=== PATIENT | female | born 1990 | race Caucasian/White ===

== ENCOUNTER 2025-05-29 13:19 | Observation (INO) ==
--- NOTE | 2025-05-29 13:28 | Emergency Department Note ---
Impression & Plan Cauda equina compression, DDD (degenerative disc disease), lumbar, Muscle spasm, Acute urinary retention, of unknown anatomic location ED Provider Note NAME: GALA LAUREN AGE: 35 SEX: F : 1990 ARRIVES VIA: Ambulance INFORMANT: Patient, EMS and family ED PROVIDER(S): Román Moon DO CHIEF COMPLAINT: back pain HPI: This is a 35-year-old female with the PMHx of depression/anxiety, obesity and DDD with prior L spine discectomy in [place] presenting to [facility] for further evaluation of . Patient is accompanied by EMS and family who provide additional history. Per EMS, the patient has severe pain and required 50 mg of Ketamine, 6 mg of Morphine and 4 mg of Zofran prior to arrival. They report severe back pain that has acutely worsened today. No trauma. Denies IVDU. No saddle anesthesia. They deny fever or chills. No cough or congestion. Denies chest pain or palpitations. No shortness of breath. They deny abdominal pain, nausea and vomiting. No urinary complaints. No recent changes in bowel movements. She states that the only medication she takes is antidepressant. She is suppose to follow up with pain management. Patient denies recent changes in medications or OTC supplements. Patient offers no other complaints, today. ADDITIONAL HISTORY OBTAINED: Per HPI Chronic Medical/Social Conditions Affecting Care: Per HPI PAST MEDICAL HISTORY: See Below PAST SURGICAL HISTORY: See Below FAMILY HISTORY: See Below SOCIAL HISTORY: See Below HOME MEDICATIONS: See Below ALLERGIES: See Below VITALS: See Below PHYSICAL EXAMINATION: GENERAL: Sitting up in bed, alert, well appearing, well nourished, no distress, non-toxic EYE EXAM: normal conjunctiva. OROPHARYNX: no exudate, no erythema, lips, buccal mucosa, and tongue normal and mucous membranes are moist NECK: supple, no nuchal rigidity, no adenopathy, non-tender LUNGS: Clear to auscultation. Normal chest wall mechanics HEART: no murmurs, regular rate, regular rhythm ABDOMEN: abdomen soft, non-tender, normo-active bowel sounds, no masses, no rebound or guarding. BACK: Back is symmetrical on inspection and there is no deformity, low midline tenderness present. EHL 5/5 strength bilaterally. Sensation intact. Moves LEs without difficulty. Strength is 5/5 globally. Patellar reflexes are 2/4 bilaterally. SKIN: no rashes and no bruising UPPER EXTREMITIES: upper extremities are grossly normal. LOWER EXTREMITIES: No pitting edema. NEURO EXAM: Normal sensorium, GCS 15, no gross weakness of arms, no gross weakness of legs. MEDICAL DECISION MAKING: Differential diagnoses includes but not limited to MSK strain, muscle spasm, DDD, cauda equina, cord compression, radiculopathy, OM In summary, this is a 35 year old female who presented with back pain. Differential as above. Nursing notes and pertinent past medical records reviewed. Vital signs reviewed and the patient is mildly hypertensive but otherwise afebrile and HDS. History and presentation revealed known DDD now with severe pain. Scheduled L spine fusion in [place]. I was able to review prior MRI from the last few months via 's EMR daron. Severe DDD noted on MRI. Physical examination revealed normal strength and sensation of the lower extremities. She is normoreflexic. No red flag symptoms besides severe pain. As a result of my initial evaluation, we will plan for pain control, imaging and basic labs. Patient completed laboratory studies and imaging. Results independently interpreted by me are reassuring. No leukocytosis. No anemia. No electrolyte derangements. No kidney dysfunction. CRP is negative. The patient was managed with numerous modalities for pain without improvement. I reevaluated patient and discussed further with her at the bedside, patient has significant back disease. Had a prior discectomy of the L5-S1 area in 2019. Is scheduled to have further back surgery with fusion. This is in [place]. Her pain has become intractable. She has received significant medications for months. We will trial a dose of droperidol. Patient was neurovascularly intact with 2+ patellar reflexes on my evaluation. We are still pending lab work and evaluation with ultrasound for postvoid residual. Given extensive back surgery and history of significant disease, will obtain an MRI today given her intractable pain. Concern for given positive urine screen, quantitative beta-hCG ordered as well as transvaginal ultrasound. Discussed this with the patient. She states she recently lost to 100 pounds and just started getting her periods. She estimates that she could be 2 to 3 weeks but states this was not a possibility previously. She had IVF for her prior pregnancies. She states that she has 2 disabled children at home. She does have frozen embryos in [place]. Patient does not desire this at this time. Patient states she is not worried about medication interactions with the fetus. Patient states that she would like the medications and understands the risk to the fetus. Patient states she would desire a medical . Quantitative beta-hCG was elevated at >1200. Transvaginal ultrasound did not show an intrauterine . There is a possibility of ectopic . Given that this is <1500 for beta- hCG, I would recommend repeat beta HCG in the next 48 hours. This was discussed with the patient. She would like to follow-up with an PAYMENT SPECIALIST as an outpatient. We are unable to offer medical at this time As discussed with PAYMENT SPECIALIST on-call Dr. Wilhelm. Discussed ectopic and bleeding precautions with the patient. There was delay in obtaining MRI for reasons including possible and discussions/confirmation, pain control and unable to tolerate supine positioning. Given concerns for intractable pain and urinary retention as she has been unable to urinate, spine surgery was paged at 174. I did independently review the patient's MRI that shows significant degenerative disc disease. I reevaluated the patient at 181, she is still having severe pain. She is now reporting saddle anesthesia. States that she is unable to feel her LEs. Remains normo to hyper- reflexic. Sensation is diminished. Poor rectal tone and states she cannot feel my touch. Still moving the LEs without difficulty. Strength appears to be intact, 5/5. Remains to have 350mL of urine in the bladder. Discussed straight catheterization with the patient, but would recommend dewitt catheter placement for the patient given urinary retention. Will trial another dose of opiates and provide steroids. We will also initiate gabapentin. Given declining examination, radiology paged at 1829 for stat read of MRI L spine for our concerns. Will give IVFR to encourage spontaneous void. If she is still unable to void, we will place dewitt catheter. 184: Per nursing staff, the patient is now sleeping following pain control with IV Fentanyl. IVFR ongoing. Plan for spontaneous void trial. 184: Stat MRI reads: Intervertebral disc extrusion at L4-L5 creating impingement of the cauda equina with no free disc fragment. Neurosurgical consultation suggested, mild disc protrusion at L5-S1 with no nerve root impingement, and lordotic straightening compatible with underlying muscle spasm. 184: Spine re-paged. Updated patient on results. Will place dewitt catheter. 190: No response from spine surgery. Given complexity and time sensitive condition, we will discuss transfer. Discussed with family. They recommend closest facility. Patient can go to any facility per CM. Family and patient are agreeable to transfer to [facility] for high level of care and operative intervention. Page sent to [facility]. 1918: Call received from Dr. Myles and discussed the patient. 1924: He states that the surgery can be this evening or tomorrow morning. He will work on timing and coordinating with the OR. Plans to touch base again, shortly. 1929: I updated the patient and her family numbers at the bedside. They are comfortable staying here at the hospital for surgical intervention. Patient still having significant pain. Dewitt catheter in place. Patient will require operative intervention. They are comfortable with this treatment plan. Will dose further with IV Valium as she is having significant back spasms. Patient is intractable in pain at this point. Given pain as well as urinary retention and MRI findings, the patient will require admission. 1955: Patient discussed with [facility] Hospitalist group for admission and accepted. 1958: TT sent to Dr. Myles discussing plan for admission to medicine. 2004: Present at the bedside for discussion with the patient and Dr. Myles. Plan for operative intervention tonight. Consults/Care Managements Discussions: Per MDM ER treatment provided: See above Procedures:none Critical Care: None The chart was completed utilizing [employer] Speech voice recognition software. Grammatical errors, random word insertions, pronoun errors, and incomplete sentences are an occasional consequence of this system due to software limitations, ambient noise, and hardware issues. Any formal questions or concerns about the content, text, or information contained within the body of this dictation should be directly addressed to the physician for clarification. Past Med/Surg History Problem List with uncertain viability of unknown anatomic location (Acute) Acute urinary retention (Acute) Muscle spasm (Acute) DDD (degenerative disc disease), lumbar (Acute) Cauda equina compression (Acute) Social History Smoking Status: Never smoker Do You Dip or Chew Tobacco: No; Hx Alcohol Use: No Hx Substance Use: No Preferred Language: Faroese Communication Ability: Effective Crop Picker Required: No Beliefs That Will Affect Care: None Current Living Situation: Family Feels Safe at Home: Yes Safety Concerns: Feels Safe At This Time Assistive Devices: None Allergies Allergies Allergy/AdvReac Type Severity Reaction Status Date / Time No Known Allergies Allergy Verified 05/29/25 17:31 Home Meds Home Medications Medication Instructions Recorded Confirmed ibuprofen 200 mg tablet 1,000 mg PO DIRECTED PRN Pain 05/29/25 05/29/25 sertraline 100 mg tablet 200 mg PO DAILY 05/29/25 05/29/25 Results & Data (ED) Vital Signs Vital Signs - 24 hr 05/29/25 13:27 05/29/25 13:27 05/29/25 13:50 Temperature Temperature Source Pulse Rate 91 H 79 Pulse Rate [Right Finger] 91 H Pulse Rate from SpO2 Sensor Pulse Rhythm Regular Pulse Rhythm [Right Finger] Regular Pulse Strength Normal Pulse Strength [Right Finger] Normal Respiratory Rate 20 20 Respiratory Effort / Characteristics Non-Labored Non-Labored Respiratory Depth Normal Normal Respiratory Pattern Regular Regular Blood Pressure 140/70 Blood Pressure [Right Arm] 140/70 Blood Pressure Mean 93 Blood Pressure Mean [Right Arm] 93 Blood Pressure Position Lying Blood Pressure Position [Right Arm] Lying Pulse Oximetry 97 97 Oxygen Delivery Method Room Air Room Air Sepsis Recent Fever Within 48 Hours No Sepsis New/Unexplained Change in Mental Status N/A Sepsis Action Taken by Nursing No Action Required 05/29/25 15:00 05/29/25 16:42 05/29/25 18:28 Temperature Temperature Source Pulse Rate Pulse Rate [Right Finger] 79 74 87 Pulse Rate from SpO2 Sensor Pulse Rhythm Pulse Rhythm [Right Finger] Pulse Strength Pulse Strength [Right Finger] Respiratory Rate 22 20 18 Respiratory Effort / Characteristics Respiratory Depth Respiratory Pattern Blood Pressure Blood Pressure [Right Arm] 94/56 L 144/62 H 116/57 L Blood Pressure Mean Blood Pressure Mean [Right Arm] 68 89 76 Blood Pressure Position Blood Pressure Position [Right Arm] Pulse Oximetry 95 97 95 Oxygen Delivery Method Room Air Room Air Room Air Sepsis Recent Fever Within 48 Hours Sepsis New/Unexplained Change in Mental Status Sepsis Action Taken by Nursing 05/29/25 19:00 05/29/25 19:45 05/29/25 20:02 Temperature 36.8 C Temperature Source Oral Pulse Rate 78 Pulse Rate [Right Finger] 90 Pulse Rate from SpO2 Sensor 100 H Pulse Rhythm Pulse Rhythm [Right Finger] Pulse Strength Pulse Strength [Right Finger] Respiratory Rate 20 14 Respiratory Effort / Characteristics Non-Labored Respiratory Depth Normal Respiratory Pattern Regular Blood Pressure 120/59 L Blood Pressure [Right Arm] 98/55 L Blood Pressure Mean 68 Blood Pressure Mean [Right Arm] 69 Blood Pressure Position Blood Pressure Position [Right Arm] Lying Pulse Oximetry 98 99 Oxygen Delivery Method Sepsis Recent Fever Within 48 Hours Sepsis New/Unexplained Change in Mental Status Sepsis Action Taken by Nursing 05/30/25 00:21 Temperature 36.7 C Temperature Source Oral Pulse Rate Pulse Rate [Right Finger] 125 H Pulse Rate from SpO2 Sensor Pulse Rhythm Pulse Rhythm [Right Finger] Regular Pulse Strength Pulse Strength [Right Finger] Normal Respiratory Rate 20 Respiratory Effort / Characteristics Non-Labored Spontaneous Respiratory Depth Normal Respiratory Pattern Blood Pressure Blood Pressure [Right Arm] 135/74 Blood Pressure Mean Blood Pressure Mean [Right Arm] 94 Blood Pressure Position Blood Pressure Position [Right Arm] Pulse Oximetry 98 Oxygen Delivery Method Room Air Sepsis Recent Fever Within 48 Hours Sepsis New/Unexplained Change in Mental Status Sepsis Action Taken by Nursing Laboratory Data 05/30/25 05:24 05/30/25 05:24 Lab Results 05/29/25 05/29/25 05/29/25 Range/Units 13:32 19:16 20:18 WBC 8.02 (4.8-10.8) K/ul RBC 4.89 (4.20-5.40) M/uL Hgb 14.3 (12.0-16.0) g/dl Hct 41.9 (37.0-47.0) % MCV 85.7 (80.0-100.0) fL MCH 29.2 (25.0-34.0) pg MCHC 34.1 (32.0-36.0) g/dL RDW Std Deviation 41.0 (36.4-46.3) fL RDW Coeff of Simona 13.2 (11.5-14.5) % Plt Count 212 (130-400) K/uL MPV 10.9 (9.4-12.4) fL Immature Gran % (Auto) 0.2 % Neut % (Auto) 71.8 % Lymph % (Auto) 21.2 % Guthrie % (Auto) 6.1 % Eos % (Auto) 0.2 % Baso % (Auto) 0.5 % Neut # (Auto) 5.75 (1.40-6.50) K/uL Lymph # (Auto) 1.70 (1.20-3.40) K/uL Guthrie # (Auto) 0.49 (0.11-0.59) K/uL Eos # (Auto) 0.02 (0.00-0.50) K/uL Baso # (Auto) 0.04 (0.00-0.20) K/uL Immature Gran # (Auto) 0.02 (0.01-0.20) K/uL Sodium 143 (136-145) mmol/L Potassium 3.7 (3.5-5.1) mmol/L Chloride 112 H (98-107) mmol/L Carbon Dioxide 22 (21-32) mmol/L Anion Gap 9 (3-11) BUN 8 (6-23) mg/dl Creatinine 0.65 (0.6-1.2) mg/dl Est Cr Clr Drug Dosing 154.7 ml/min eGFR 118.41 BUN/Creatinine Ratio 12.3 (10-20) Glucose 117 H (70-99(Fasting)) mg/dl Lactate 1.5 (0.4-2.0) mmol/L Calcium 8.8 (8.6-10.3) mg/dl C-Reactive Protein < 0.50 (0-0.5) mg/dl HCG, Qual Positive (Negative) HCG, Quant 1270 mIU/ml Urine Color Yellow Urine Appearance Clear (Clear) Urine pH 5.5 (4.5-7.5) Ur Specific [place] 1.022 (1.000-1.030) Urine Protein Negative (Negative) Urine Glucose (UA) 2+ H (Negative) Urine Ketones 1+ H (Negative) Urine Blood Negative (Negative) Urine Nitrite Negative (Negative) Urine Bilirubin Negative (Negative) Urine Urobilinogen Negative (Negative) Ur Leukocyte Esterase Negative (Negative) Urine Comment Blood Type A Positive Antibody Screen NEGATIVE Administered Medications Gabapentin (Gabapentin 100 Mg Cap) 100 mg PO QAM [facility] Stop: 06/28/25 18:29 Last Admin: 05/29/25 18:30 Dose: 100 mg Documented By: PATRICIA Cefazolin Sodium (Ancef 2000mg) 2,000 mg in 15 mls @ 3.75 mls/min IV Q8H IRINA; Protocol Stop: 05/30/25 14:03 Last Admin: 05/30/25 05:16 Dose: 3.75 mls/min Documented By: DLR Miscellaneous (Remove Lidoderm Patch) 1 each N/A DAILY@2100 [facility] Stop: 06/28/25 20:59 Last Admin: 05/30/25 02:14 Dose: Not Given Documented By: DLR Discontinued Medications Bupivacaine HCl (Bupivacaine 0.5 % 5 Mg/1 Ml Mpf 30ml Vial) Confirm Administered Dose 30 ml .ROUTE .STK-MED ONE Stop: 05/29/25 20:40 Last Admin: 05/29/25 23:52 Dose: 10 ml Documented By: [id number] Dexamethasone (Dexamethasone Sod Inj 4 Mg/Ml Vial) 10 mg IV NOW STA Stop: 05/29/25 18:19 Last Admin: 05/29/25 18:24 Dose: 10 mg Documented By: PATRICIA Diazepam (Diazepam 5 Mg/Ml 10ml Vial) 5 mg IV NOW STA Stop: 05/29/25 13:29 Last Admin: 05/29/25 13:45 Dose: 5 mg Documented By: MILAN Diazepam (Diazepam 5 Mg/Ml 10ml Vial) 5 mg IV NOW STA Stop: 05/29/25 14:48 Last Admin: 05/29/25 16:15 Dose: Not Given Documented By: PATRICIA Diazepam (Diazepam 5 Mg/Ml 10ml Vial) 10 mg IV NOW STA Stop: 05/29/25 19:31 Last Admin: 05/29/25 19:52 Dose: 50 mg Documented By: JUAN Diphenhydramine HCl (Diphenhydramine 50 Mg/Ml Vial) 50 mg IV NOW STA Stop: 05/29/25 14:38 Last Admin: 05/29/25 14:39 Dose: 50 mg Documented By: MILAN Diphenhydramine HCl (Diphenhydramine 50 Mg/Ml Vial) Confirm Administered Dose 50 mg .ROUTE .STK-MED ONE Stop: 05/29/25 14:39 Last Admin: 05/29/25 14:53 Dose: Not Given Documented By: MILAN Droperidol (Droperidol 5 Mg/2 Ml Vial) 1.25 mg IV ONE STA Stop: 05/29/25 14:23 Last Admin: 05/29/25 14:26 Dose: 1.25 mg Documented By: MILAN Fentanyl Citrate (Fentanyl Citrate Pf 100 Mcg/2 Ml Vial) 100 mcg IV NOW STA Stop: 05/29/25 18:19 Last Admin: 05/29/25 18:25 Dose: 100 mcg Documented By: PATRICIA Gelatin (Gelatin Sponge 12-7mm) Confirm Administered Dose 2 each .ROUTE .STK-MED ONE Stop: 05/29/25 20:42 Last Admin: 05/29/25 23:47 Dose: Not Given Documented By: SHELLIE Sodium Chloride (Nss) 1,000 mls @ 999 mls/hr IV .Q1H1M IRINA Stop: 05/29/25 19:27 Last Infusion: 05/30/25 02:17 Dose: Infused Documented By: Admin: 05/29/25 18:38 Dose: 999 mls/hr Documented By: PATRICIA Lactated Ringer's (Lr) 1,000 mls @ 100 mls/hr IV .Q10H ONE Stop: 05/30/25 06:03 Last Admin: 05/30/25 02:14 Dose: Not Given Documented By: YULISSA Acetaminophen (Ofirmev) 1,000 mg in 100 mls @ 400 mls/hr IV NOW STA Stop: 05/29/25 20:48 Last Admin: 05/30/25 02:14 Dose: Not Given Documented By: YULISSA Cefazolin Sodium (Ancef 2000mg) 2,000 mg in 15 mls @ 3.75 mls/min IV PREOP ONE; Protocol Stop: 05/29/25 22:13 Last Admin: 05/29/25 21:50 Dose: 3.75 mls/min Documented By: ANDRE Ketorolac Tromethamine (Ketorolac Tromethamine 15 Mg/Ml Vial) 15 mg IV ONE STA Stop: 05/29/25 13:29 Last Admin: 05/29/25 13:45 Dose: 15 mg Documented By: MILAN Lidocaine (Lidocaine 5% 1 Patch) 1 patch TD NOW STA Stop: 05/29/25 13:29 Last Admin: 05/29/25 13:44 Dose: 1 patch Documented By: MILAN Miscellaneous ( Floseal Hemostatic Matrix 5ml) 5 ml TOP ONCE ONE Stop: 05/29/25 21:47 Last Admin: 05/29/25 23:48 Dose: 1 ml Documented By: [id number] Morphine Sulfate (Morphine Sulfate 10 Mg/Ml Carp/Vial) 6 mg IV NOW STA Stop: 05/29/25 16:53 Last Admin: 05/29/25 16:58 Dose: 6 mg Documented By: PATRICIA Thrombin (Thrombin 5000 Units Kit) Confirm Administered Dose 5,000 units .ROUTE .STK-MED ONE Stop: 05/29/25 20:41 Last Admin: 05/29/25 23:48 Dose: Not Given Documented By: SHELLIE Vancomycin HCl (Vancomycin Hcl 1000mg/20ml Vial) Confirm Administered Dose 50 mg .ROUTE .STK-MED ONE Stop: 05/29/25 20:41 Last Admin: 05/29/25 23:47 Dose: 50 mg Documented By: [id number] Imaging Data Radiologist's Impression: Pelvic/Transvag US 05/29/25 15:09 EXAMINATION: Pelvic ultrasound CLINICAL HISTORY: Positive test and ER. Last menstrual period 1 month ago. Positioning challenges were encountered due to patient back injury. PRIORS: None TECHNIQUE: Transabdominal followed by transvaginal pelvic ultrasound was performed with grayscale and color Doppler imaging. PRIORS: None FINDINGS: Transabdominal followed by transvaginal pelvic ultrasound was performed. An intrauterine is not identified. Endometrium measures 2.3 cm. No vascularity in the endometrium or free fluid. The right ovary measures 3.9 x 2.5 x 3.9 cm. A cystic region present in the right ovary without surrounding vascularity, may represent corpus luteal cyst or follicle this measures 1.1 cm. No pole or yolk sac identified. The left ovary measures 4.3 x 2.6 x 1.9 cm. Normal blood flow is present. No ovarian cyst or mass. No free fluid in the pelvis. Normal blood flow in both ovaries. IMPRESSION: 1. No sonographic evidence of an intrauterine on the current examination. 2. Right ovarian round anechoic mass measuring 1.1 cm with no pole or gestational sac, may represent follicle or corpus luteal cyst. An ectopic is thought to be far less likely. Close clinical, laboratory and sonographic follow-up is suggested. ACT 112: Positive. There are findings on this examination that require communication between the performing entity and the patient following Patient Test Result Information Act ([place] ACT 112) guidelines. Electronically signed by Radha Melo 05-29-2025 5:39 PM Discharge Plan Visit Data Chief Complaint: Back Injury/Pain Stated Complaint: BACK PAIN ED Provider: Román Moon Discharge Problem: Cauda equina compression, DDD (degenerative disc disease), lumbar, Muscle spasm, Acute urinary retention, of unknown anatomic location Patient Disposition: Admitted As Inpatient Condition: Serious Discharge Instructions Interventions: ED Discharge Assessment Last Done: 05/29/25 20:33
[2025-05-29] MEDS: LIDOCAINE 5% 1 PATCH TD STA (13:44)
[2025-05-29] MEDS: KETOROLAC TROMETHAMINE 15 MG/ML VIAL IV STA (13:45)
[2025-05-29] MEDS: diazePAM 5 MG/ML 10ML VIAL IV STA ×3 (13:45→19:52)
[2025-05-29 13:54] LABS: Hematocrit (blood only) 41.9 % (37.0-47.0); Hemoglobin 14.3 g/dl (12.0-16.0); Immature Granulocytes # (auto) 0.02 K/uL (0.01-0.20); Immature Granulocytes % (auto) 0.2 %; Mean Corpuscular Hemoglobin 29.2 pg (25.0-34.0); Mean Corpuscular Volume 85.7 fL (80.0-100.0); Platelet Count 212 K/uL (130-400); RDW Standard Deviation 41.0 fL (36.4-46.3); Red Blood Count 4.89 M/uL (4.20-5.40); White Blood Count 8.02 K/ul (4.8-10.8)
[2025-05-29 14:13] LABS: Anion Gap 9 (3-11); Blood Urea Nitrogen 8 mg/dl (6-23); Calcium 8.8 mg/dl (8.6-10.3); Carbon Dioxide 22 mmol/L (21-32); Chloride 112 mmol/L (98-107); Creatinine Clr Calc Pharmacy 154.7 ml/min; Glucose 117 mg/dl (70-99(Fasting)); Potassium 3.7 mmol/L (3.5-5.1); Pregnancy Test, Serum Positive (Negative); Sodium 143 mmol/L (136-145)
[2025-05-29] MEDS: DROPERIDOL 5 MG/2 ML VIAL IV STA (14:26)
[2025-05-29] MEDS: diphenhydrAMINE 50 MG/ML VIAL IV STA (14:39)
[2025-05-29] MEDS: diphenhydrAMINE 50 MG/ML VIAL ONE (14:53)
[2025-05-29] MEDS: MoRPHine SULFATE 10 MG/ML CARP/VIAL IV STA (16:58)
--- NOTE | 2025-05-29 17:39 | Ultrasound Report ---
EXAMINATION: Pelvic ultrasound CLINICAL HISTORY: Positive test and ER. Last menstrual period 1 month ago. Positioning challenges were encountered due to patient back injury. PRIORS: None TECHNIQUE: Transabdominal followed by transvaginal pelvic ultrasound was performed with grayscale and color Doppler imaging. PRIORS: None FINDINGS: Transabdominal followed by transvaginal pelvic ultrasound was performed. An intrauterine is not identified. Endometrium measures 2.3 cm. No vascularity in the endometrium or free fluid. The right ovary measures 3.9 x 2.5 x 3.9 cm. A cystic region present in the right ovary without surrounding vascularity, may represent corpus luteal cyst or follicle this measures 1.1 cm. No pole or yolk sac identified. The left ovary measures 4.3 x 2.6 x 1.9 cm. Normal blood flow is present. No ovarian cyst or mass. No free fluid in the pelvis. Normal blood flow in both ovaries. IMPRESSION: 1. No sonographic evidence of an intrauterine on the current examination. 2. Right ovarian round anechoic mass measuring 1.1 cm with no pole or gestational sac, may represent follicle or corpus luteal cyst. An ectopic is thought to be far less likely. Close clinical, laboratory and sonographic follow-up is suggested. ACT 112: Positive. There are findings on this examination that require communication between the performing entity and the patient following Patient Test Result Information Act ([place] ACT 112) guidelines. Electronically signed by Radha Melo 05-29-2025 5:39 PM
[2025-05-29] MEDS: DEXAMETHASONE SOD INJ 4 MG/ML VIAL IV STA (18:24)
[2025-05-29] MEDS: GABAPENTIN 100 MG CAP PO SCH (18:30)
[2025-05-29] MEDS: SODIUM CHLORIDE 0.9% 1,000 ML IV SCH (18:38)
--- NOTE | 2025-05-29 18:41 | Magnetic Resonance Report ---
MRI OF THE LUMBAR SPINE WITHOUT IV CONTRAST CLINICAL HISTORY: Pain COMPARISON: None TECHNIQUE: MRI of the lumbar spine was performed utilizing various T1 and T2-weighted sequences in the axial and sagittal planes. IV contrast was not administered for this examination. FINDINGS: Lumbar spine: Marked lordotic straightening noted. Intervertebral discs: Mild decreased intervertebral to signal present at L3-L4 through L5-S1, compatible with desiccation. Spinal cord and central canal: The conus appropriately terminates at T12-L1. L1-L2 and L2-L3: No focal disc extrusion, nerve root impingement or spinal stenosis. L3-L4: An annular tear is present with a central to bilateral paracentral intervertebral disc protrusion. No neuroforaminal stenosis, spinal stenosis or nerve root impingement. L4-L5: A central to bilateral paracentral intervertebral disc extrusion is present, image 8, series 3 and image 19, series 6 measuring approximately 1.2 cm in anteroposterior dimension by 1.3 cm in transverse dimension. This creates impingement of the cauda equina. The bilateral neural foramina are patent at this level. No free disc fragment. Mild facet hypertrophic changes noted with mild ligamentum flavum hypertrophy at this level. L5-S1: Annular tear is present. Mild intervertebral disc space height loss is noted. A central to left paracentral intervertebral disc protrusion is present. No extrusion, free disc fragment, neural foraminal stenosis or exiting nerve root impingement. Sacrum: Normal bone marrow signal. Right paraspinal Muscle atrophy at the level of the sacrum, asymmetric with the left. Soft tissues: Mild edema present within the subcutaneous tissues of the back IMPRESSION: 1. Intervertebral disc extrusion at L4-L5 creating impingement of the cauda equina with no free disc fragment. Neurosurgical consultation suggested. 2. Mild disc protrusion at L5-S1 with no nerve root impingement. 3. Lordotic straightening compatible with underlying muscle spasm. ACT 112: Positive. There are findings on this examination that require communication between the performing entity and the patient following Patient Test Result Information Act ([place] ACT 112) guidelines. Electronically signed by Radha Melo 05-29-2025 6:41 PM
[2025-05-29 19:38] LABS: Appearance Urine Clear (Clear); Glucose Urine UA 2+ (Negative)
--- NOTE | 2025-05-29 20:06 | History & Physical Report ---
Date of Service May 29, 2025 Assessment & Plan (1) Cauda equina compression: Plan: Assessment and plan below following discussion of case with ED provider and reviewing patient history/pertinent normal/abnormal diagnostic test results. Cauda equina compression syndrome hx chronic back pain status post surgery (2020) Hypotension secondary to hypovolemia, IV narcotics given at the ER contributory Hyperglycemia rule out DM , unknown age/viability, patient verbalized intent to terminate unplanned . Admit to med/tele given hypotension IVF Orthopedics spine consult Re: Cauda equina compression syndrome (Patient already seen by Dr. Myles at the ER. Emergent surgery contemplated.) OB consult re: , unknown age/availability (ED provider already intact with Dr. Wilhelm.) Check hemoglobin A1c DVT prophylaxis. SCDs re: procedure Full code Text document was generated using [employer] voice recognition software. It may contain grammatical or spelling errors. Kindly contact undersigned for clarification of any documentation item in question. History of Present Illness Chief Complaint: Worsening back pain Primary Care Provider: NO PCP History obtained from patient, family, and records. Medical history significant for chronic back pain status post surgery (2020), mood disorder. Patient is a resident of [place], [place] who who has been visiting local family in [place] the past week. Patient has been dealing with worsening back pain over the last few years after surgery following back trauma in [place] in 2020. Surgery contemplated soon by [place] specialist following insurance preauthorization as per patient account. Patient woke up with worsening of chronic low back pain this morning. She could not move her legs. Left more than the right. Both legs felt numb. Bladder and bowel incontinence noted at home. No fever, no chills. No chest pain, no SOB. Intractable discomfort at the ER. Lowest SBP of 90s documented at the ER. Medical History as above Surgical History : Back surgery, section, cholecystectomy Family History : DM Personal/Social history : Non-smoker, no EtOH intake, businesswoman Allergies Allergy/AdvReac Type Severity Reaction Status Date / Time No Known Allergies Allergy Verified 05/29/25 17:31 Home Medications Medication Instructions Recorded Confirmed Type ibuprofen 200 mg tablet 1,000 mg PO DIRECTED PRN Pain 05/29/25 05/29/25 History sertraline 100 mg tablet 200 mg PO DAILY 05/29/25 05/29/25 History Past Med/Surg History Problem List (Updated 05/29/25 @ 21:18 by Sunny Wilhelm MD) with uncertain viability of unknown anatomic location (Acute) Acute urinary retention (Acute) Muscle spasm (Acute) DDD (degenerative disc disease), lumbar (Acute) Cauda equina compression (Acute) Social History Smoking Status: Unknown if ever smoked Preferred Language: Divehi Feels Safe at Home: Yes Review of Systems Review of Systems: As per HPI, all other systems reviewed and negative Physical Exam Physical Exam: GENERAL: Slightly uncomfortable, obese, no respiratory distress, lying on her left side. SKIN: Normal color, warm HEENT: [place] palpebral conjunctivae, no ptosis, dry buccal mucosa NECK : Supple, no tenderness CHEST : CTA, no tenderness HEART : RRR, no obvious murmurs ABDOMEN: Some distention, nontender BACK : Low back tenderness EXTREMITIES : Minimal LE swelling, no LE tenderness, palpable pulses, no other conspicuous deformities noted NEUROLOGIC : Coherent, no facial asymmetry, occasional leg restlessness, gait and stance not assessed Results & Data Results & Data Vital Signs (Past 12 Hours) Vital Signs Temp Pulse Pulse Resp BP BP Pulse Ox 05/29/25 20:02 36.8 C 90 14 98/55 L 05/29/25 19:45 78 20 99 05/29/25 19:00 120/59 L 98 05/29/25 18:28 87 18 116/57 L 95 05/29/25 16:42 74 20 144/62 H 97 05/29/25 15:00 79 22 94/56 L 95 05/29/25 13:50 79 05/29/25 13:27 91 H 20 140/70 97 05/29/25 13:27 91 H 20 140/70 97 O2 Del Method 05/29/25 20:02 05/29/25 19:45 05/29/25 19:00 05/29/25 18:28 Room Air 05/29/25 16:42 Room Air 05/29/25 15:00 Room Air 05/29/25 13:50 05/29/25 13:27 Room Air 05/29/25 13:27 Room Air Laboratory Results Laboratory Results WBC 8.02 K/ul (4.8-10.8) 05/29/25 13:32 RBC 4.89 M/uL (4.20-5.40) 05/29/25 13: Hgb 14.3 g/dl (12.0-16.0) 05/29/25 13: Hct 41.9 % (37.0-47.0) 05/29/25 13: MCV 85.7 fL (80.0-100.0) 05/29/25: MCH 29.2 pg (25.0-34.0) 05/29/25: MCHC 34.1 g/dL (32.0-36.0) 05/29/25: RDW Std Deviation 41.0 fL (36.4-46.3) 05/29/25: RDW Coeff of [place] 13.2 % (11.5-14.5) 05/29/25: Plt Count 212 K/uL (130-400) 05/29/25: MPV 10.9 fL (9.4-12.4) 05/29/25: Immature Gran % (Auto) 0.2 % 05/29/25: Neut % (Auto) 71.8 % 05/29/25: Lymph % (Auto) 21.2 % 05/29/25: [place] % (Auto) 6.1 % 05/29/25: Eos % (Auto) 0.2 % 05/29/25: Baso % (Auto) 0.5 % 05/29/25: Neut # (Auto) 5.75 K/uL (1.40-6.50) 05/29/25: Lymph # (Auto) 1.70 K/uL (1.20-3.40) 05/29/25: [place] # (Auto) 0.49 K/uL (0.11-0.59) 05/29/25: Eos # (Auto) 0.02 K/uL (0.00-0.50) 05/29/25: Baso # (Auto) 0.04 K/uL (0.00-0.20) 05/29/25: Immature Gran # (Auto) 0.02 K/uL (0.01-0.20) 07/13/25 13:32 Sodium 143 mmol/L (136-145) 05/29/25 13:32 Potassium 3.7 mmol/L (3.5-5.1) 05/29/25 13:32 Chloride 112 mmol/L (98-107) H 05/29/25 13:32 Carbon Dioxide 22 mmol/L (21-32) 05/29/25 13:32 Anion Gap 9 (3-11) 05/29/25 13:32 BUN 8 mg/dl (6-23) 05/29/25 13:32 Creatinine 0.65 mg/dl (0.6-1.2) 05/29/25 13:32 Est Cr Clr Drug Dosing 154.7 ml/min 05/29/25 13:32 eGFR 118.41 05/29/25 13:32 BUN/Creatinine Ratio 12.3 (10-20) 05/29/25 13:32 Glucose 117 mg/dl (70-99(Fasting)) H 05/29/25 13:32 Calcium 8.8 mg/dl (8.6-10.3) 05/29/25 13:32 C-Reactive Protein < 0.50 mg/dl (0-0.5) 05/29/25 13:32 HCG, Qual Positive (Negative) 05/29/25 13:32 HCG, Quant 1270 mIU/ml 05/29/25 13:32 Urine Color Yellow 05/29/25 19:16 Urine Appearance Clear (Clear) 05/29/25 19:16 Urine pH 5.5 (4.5-7.5) 05/29/25 19:16 Ur Specific [place] 1.022 (1.000-1.030) 05/29/25 19:16 Urine Protein Negative (Negative) 05/29/25 19:16 Urine Glucose (UA) 2+ (Negative) H 05/29/25 19:16 Urine Ketones 1+ (Negative) H 05/29/25 19:16 Urine Blood Negative (Negative) 05/29/25 19:16 Urine Nitrite Negative (Negative) 05/29/25 19:16 Urine Bilirubin Negative (Negative) 05/29/25 19:16 Urine Urobilinogen Negative (Negative) 05/29/25 19:16 Ur Leukocyte Esterase Negative (Negative) 05/29/25 19:16 Urine Comment 05/29/25 19:16 Impressions Pelvic/Transvag US 05/29/25 15:09 EXAMINATION: Pelvic ultrasound CLINICAL HISTORY: Positive test and ER. Last menstrual period 1 month ago. Positioning challenges were encountered due to patient back injury. PRIORS: None TECHNIQUE: Transabdominal followed by transvaginal pelvic ultrasound was performed with grayscale and color Doppler imaging. PRIORS: None FINDINGS: Transabdominal followed by transvaginal pelvic ultrasound was performed. An intrauterine is not identified. Endometrium measures 2.3 cm. No vascularity in the endometrium or free fluid. The right ovary measures 3.9 x 2.5 x 3.9 cm. A cystic region present in the right ovary without surrounding vascularity, may represent corpus luteal cyst or follicle this measures 1.1 cm. No pole or yolk sac identified. The left ovary measures 4.3 x 2.6 x 1.9 cm. Normal blood flow is present. No ovarian cyst or mass. No free fluid in the pelvis. Normal blood flow in both ovaries. IMPRESSION: 1. No sonographic evidence of an intrauterine on the current examination. 2. Right ovarian round anechoic mass measuring 1.1 cm with no pole or gestational sac, may represent follicle or corpus luteal cyst. An ectopic is thought to be far less likely. Close clinical, laboratory and sonographic follow-up is suggested. ACT 112: Positive. There are findings on this examination that require communication between the performing entity and the patient following Patient Test Result Information Act ([place] ACT 112) guidelines. Electronically signed by Radha Melo 05-29-2025 5:39 PM Lumbar Spine MRI 05/29/25 16:03 MRI OF THE LUMBAR SPINE WITHOUT IV CONTRAST CLINICAL HISTORY: Pain COMPARISON: None TECHNIQUE: MRI of the lumbar spine was performed utilizing various T1 and T2-weighted sequences in the axial and sagittal planes. IV contrast was not administered for this examination. FINDINGS: Lumbar spine: Marked lordotic straightening noted. Intervertebral discs: Mild decreased intervertebral to signal present at L3-L4 through L5-S1, compatible with desiccation. Spinal cord and central canal: The conus appropriately terminates at T12-L1. L1-L2 and L2-L3: No focal disc extrusion, nerve root impingement or spinal stenosis. L3-L4: An annular tear is present with a central to bilateral paracentral intervertebral disc protrusion. No neuroforaminal stenosis, spinal stenosis or nerve root impingement. L4-L5: A central to bilateral paracentral intervertebral disc extrusion is present, image 8, series 3 and image 19, series 6 measuring approximately 1.2 cm in anteroposterior dimension by 1.3 cm in transverse dimension. This creates impingement of the cauda equina. The bilateral neural foramina are patent at this level. No free disc fragment. Mild facet hypertrophic changes noted with mild ligamentum flavum hypertrophy at this level. L5-S1: Annular tear is present. Mild intervertebral disc space height loss is noted. A central to left paracentral intervertebral disc protrusion is present. No extrusion, free disc fragment, neural foraminal stenosis or exiting nerve root impingement. Sacrum: Normal bone marrow signal. Right paraspinal Muscle atrophy at the level of the sacrum, asymmetric with the left. Soft tissues: Mild edema present within the subcutaneous tissues of the back IMPRESSION: 1. Intervertebral disc extrusion at L4-L5 creating impingement of the cauda equina with no free disc fragment. Neurosurgical consultation suggested. 2. Mild disc protrusion at L5-S1 with no nerve root impingement. 3. Lordotic straightening compatible with underlying muscle spasm. ACT 112: Positive. There are findings on this examination that require communication between the performing entity and the patient following Patient Test Result Information Act ([place] ACT 112) guidelines. Electronically signed by Radha Melo 05-29-2025 6:41 PM
[2025-05-29] MEDS ORDERED: LORazepam 0.5 MG TAB PO PRN (20:08)
[2025-05-29] MEDS ORDERED: PROMETHAZINE 12.5 MG/50.5 ML BAG IV PRN (20:08)
[2025-05-29] MEDS ORDERED: HYDROmorphone INJ 1 MG/ML SYRINGE IV PRN (20:16)
--- NOTE | 2025-05-29 20:55 | Anesthesiology Consultation ---
Date of Service May 29, 2025 Assessment & Plan Chart Review Chart Review: Acceptable Risk for Surgery and Patient NOT seen in Pre Admission Testing Consults Requested none ASA [id number] Proposed Anesthesia Anesthesia Type: General Risk / Benefits Reviewed With: PT / POA / Parent / Guardian, Accepts Plan and Informed Consent Obtained History Surgery Operation Date: 05/29/25 20:25 Proposed Procedures p Lumbar Decompression - Ravin Myles MD Height/Weight Height: 5 ft 6 in Weight: 112 kg Allergies Allergy/AdvReac Type Severity Reaction Status Date / Time No Known Allergies Allergy Verified 05/29/25 17:31 Medications Home Medications Medication Instructions Recorded Confirmed Last Taken ibuprofen 200 mg tablet 1,000 mg PO DIRECTED PRN Pain 05/29/25 05/29/25 05/29/25 11:00 sertraline 100 mg tablet 200 mg PO DAILY 05/29/25 05/29/25 05/29/25 Active Medications Generic Name Dose Route Start Last Admin Trade Name Freq PRN Reason Stop Dose Admin Gabapentin 100 mg 05/29/25 18:30 05/29/25 18:30 Gabapentin 100 Mg Cap PO 06/28/25 18:29 100 mg QAM IRINA Administration NPO Date Last Intake of Fluids: 05/29/25 Time Last Intake of Fluids: 18:30 Date Last Intake of Solids: 05/28/25 Time Last Intake of Solids: 17:00 Exercise / Class Metabolic Activity II 4-5 Yardwork/Stairs/Walk up hill Past Anesthesia History No Hx of Anesthesia Complications and No Family Hx of Anesthesia Complications History of PONV No Hx of PONV and No Hx of Motion Sickness Social History Smoking Status: Unknown if ever smoked Physical Exam Vital Signs Last Vital Signs Temp 36.8 C 05/29/25 20:02 Pulse 90 05/29/25 20:02 Resp 14 05/29/25 20:02 BP 98/55 L 05/29/25 20:02 Pulse Ox 99 05/29/25 19:45 O2 Del Method Room Air 05/29/25 18:28 Constitutional + obese ENMT Mouth: no dentition abnormality Thyromental Distance: > or= 3.5 Finger Breadths Mallampati Class: II Neck normal visual inspection Respiratory normal respiratory effort Auscultation: lungs clear to auscultation bilaterally Cardiovascular Rate/Rhythm: regular rate and regular rhythm Psychiatric Orientation: alert Testing Laboratory Results 05/29/25 13:32 05/29/25 13:32 HCG, Quant 1270 mIU/ml 05/29/25 13:32 Urine Color Yellow 05/29/25 19:16 Urine Appearance Clear (Clear) 05/29/25 19:16 Urine pH 5.5 (4.5-7.5) 05/29/25 19:16 Ur Specific [place] 1.022 (1.000-1.030) 05/29/25 19:16 Urine Protein Negative (Negative) 05/29/25 19:16 Urine Glucose (UA) 2+ (Negative) H 05/29/25 19:16 Urine Ketones 1+ (Negative) H 05/29/25 19:16 Urine Nitrite Negative (Negative) 05/29/25 19:16 Ur Leukocyte Esterase Negative (Negative) 05/29/25 19:16 05/29/25 13:32 HCG, Quant 1270
--- NOTE | 2025-05-29 21:08 | Orthopedic Consultation ---
Date of Service May 29, 2025 History of Present Illness Reason for Consultation: Lumbar disc herniation/radiculopathy Requesting Physician: . 35-year-old female who presented to the emergency room on May 29, 2025 for development of low back pain, bilateral lower extremity symptoms right greater than left. Patient is status post a prior L5-S1 disc herniation and discectomy in the past, this was treated in [place] she underwent a discectomy. She was being evaluated for potential additional surgery, and today she developed notable increase in back pain and bilateral lower extremity symptoms. It was se angel enough that she presented to the emergency room. Due to the severity of the symptoms she underwent MRI revealing a central disc herniation with extensive compression of the nerve roots. Exam reveals the patient to be lying on her side, she is unable to roll onto her back due to severe back pain despite pain medications. Pain is located lumbosacral junction. Left leg motor exam reveals 4+ in terms of EHL and 4 out of 5 ankle dorsiflexion, knee extension strength is at least 4 out of 5, on the right side though these are all diminished I have grade combination of secondary decreased strength and also due to any effort at extending the knee which caused severe pain in the back in the lower lumbar spine. As per ER physician she has decreased sensation in the perineal region, could not sensate rectal exam. MRI OF THE LUMBAR SPINE WITHOUT IV CONTRAST May 29, 2025 CLINICAL HISTORY: Pain COMPARISON: None FINDINGS: Lumbar spine: Marked lordotic straightening noted. Intervertebral discs: Mild decreased intervertebral to signal present at L3-L4 through L5-S1, compatible with desiccation. Spinal cord and central canal: The conus appropriately terminates at T12-L1. L1-L2 and L2-L3: No focal disc extrusion, nerve root impingement or spinal stenosis. L3-L4: An annular tear is present with a central to bilateral paracentral intervertebral disc protrusion. No neuroforaminal stenosis, spinal stenosis or nerve root impingement. L4-L5: A central to bilateral paracentral intervertebral disc extrusion is present, image 8, series 3 and image 19, series 6 measuring approximately 1.2 cm in anteroposterior dimension by 1.3 cm in transverse dimension. This creates impingement of the cauda equina. The bilateral neural foramina are patent at this level. No free disc fragment. Mild facet hypertrophic changes noted with mild ligamentum flavum hypertrophy at this level. L5-S1: Annular tear is present. Mild intervertebral disc space height loss is noted. A central to left paracentral intervertebral disc protrusion is present. No extrusion, free disc fragment, neural foraminal stenosis or exiting nerve root impingement. Sacrum: Normal bone marrow signal. Right paraspinal Muscle atrophy at the level of the sacrum, asymmetric with the left. Soft tissues: Mild edema present within the subcutaneous tissues of the back IMPRESSION: 1. Intervertebral disc extrusion at L4-L5 creating impingement of the cauda equina with no free disc fragment. Neurosurgical consultation suggested. 2. Mild disc protrusion at L5-S1 with no nerve root impingement. 3. Lordotic straightening compatible with underlying muscle spasm. MRI images of the lumbar spine from [facility] from May 29, 2025, this is my separate interpretation, this reveals the patient to have the main finding to be at L4-5 where there is a central disc protrusion at L4-5 causing severe stenosis this appears to be more so on the right than on the left. Of note is that there is some additional degenerative changes involving disc protrusions at L3-4 and L5-S1 with evidence of prior right hemilaminectomy on the right at L5-S1. Impression: L4-5 lumbar disc extrusion with severe herniation and radiculopathy, decreased perineal sensation. Plan: I discussed with the patient and family members which include her and mother the nature of the situation, do the extent of the stenosis, I am recommending an emergent lumbar discectomy at the L4-5 level to decompress the nerve roots. The nature of the surgery was discussed, along with his goals of decompressing the canal, potential risk complications associated type procedure including but not split to chances of infection, neurologic injury, bleeding, need for additional surgery secondary to the need for fusion at some point in the future if needed. I explained the hospital and postoperative course as the patient is from the [place] area but they have the option of staying here locally at least for reasonable follow-up, then she can return to [place] and we consult with her spine surgeons in that region, they are in agreement with this plan. Allergies Allergy/AdvReac Type Severity Reaction Status Date / Time No Known Allergies Allergy Verified 05/29/25 17:31 Home Medications Medication Instructions Recorded Confirmed Type ibuprofen 200 mg tablet 1,000 mg PO DIRECTED PRN Pain 05/29/25 05/29/25 History sertraline 100 mg tablet 200 mg PO DAILY 05/29/25 05/29/25 History Past Med/Surg History Problem List (Updated 05/29/25 @ 19:39 by Román Moon DO) of unknown anatomic location (Acute) Acute urinary retention (Acute) Muscle spasm (Acute) DDD (degenerative disc disease), lumbar (Acute) Cauda equina compression (Acute) Social History Smoking Status: Unknown if ever smoked Preferred Language: Syriac Feels Safe at Home: Yes Review of Systems All systems reviewed & are unremarkable except as noted in HPI & below. Physical Exam . Results & Data Results & Data Laboratory Results . Diagnostic Findings . PG Care Time/CCT Total # of Minutes Spent Total Time Spent with Patient: Total time spent is greater than 50% in coordination of care (as documented) at patient's floor/unit and/or counseling patient: Coding Level of Care Code 20986 IN/OBS CONSULT LVL 4,60M
--- NOTE | 2025-05-29 21:10 | History & Physical Bridge Note ---
Date of Service May 29, 2025 L4-5 lumbar decompression/discectomy,. History & Physical Bridge Note I have examined the patient, reviewed the History & Physical and in the interval since the performance of the History & Physical I have noted the following changes of clinical significance: no changes noted
[2025-05-29] MEDS ORDERED: LIDOCAINE 2% 2 ML VIAL/AMP(20MG/ML) INFIL ONE (21:12)
[2025-05-29] MEDS ORDERED: PROPOFOL IV EMULSION 10 MG/ML 20 ML VIAL IV ONE (21:12)
[2025-05-29] MEDS ORDERED: ROCURONIUM BROMIDE 10 MG/ML 5 ML VIAL IV ONE (21:12)
[2025-05-29] MEDS ORDERED: MIDAZOLAM HCL 1 MG/ML 2ML VIAL ONE (21:13)
--- NOTE | 2025-05-29 21:22 | OB/GYN Consultation ---
Date of Consultation May 29, 2025 Assessment & Plan (1) of unknown anatomic location: Shanna is a 35-year-old presented to the ED for acute back pain with incidental finding of . is of uncertain viability and/or location based on current findings. hCG noted at 1270 with a endometrium at 2.3 cm without gestational sac present. Small 1.1 cm cystic area in the right adnexa likely representing corpus luteum although ectopic cannot be ruled out based on current findings. - Recommend repeat hCG level in 48 hours. Will give further guidance pending results. It may take multiple hCG levels and several ultrasounds over the next 2 to 3 weeks to determine viability. Although, in some circumstances viability can sometimes be determined much more quickly. Ultimately, if is determined to be viable she will need to seek care for termination at a [facility] or similar clinic. If is determined be definitively nonviable, standard care for a missed would be warranted through [facility]. (2) with uncertain viability: History of Present Illness History of Present Illness Shanna is a 35-year-old presented to the ED for acute back pain. In the ED she was noted to have a elevated hCG level at 1270 and an ultrasound showing a normal-appearing uterus and endometrium at 2.3 cm without gestational sac. Small cyst in the right ovary consistent with a suspected corpus luteum although ectopic cannot be ruled out. Patient is planning to terminate as this is a nondesired . Allergies Allergy/AdvReac Type Severity Reaction Status Date / Time No Known Allergies Allergy Verified 05/29/25 17:31 Home Medications Medication Instructions Recorded Confirmed Type ibuprofen 200 mg tablet 1,000 mg PO DIRECTED PRN Pain 05/29/25 05/29/25 History sertraline 100 mg tablet 200 mg PO DAILY 05/29/25 05/29/25 History Patient History Social History Smoking Status: Unknown if ever smoked Preferred Language: Montserratian Feels Safe at Home: Yes Results & Data Vital Signs (Past 12 Hours) Vital Signs Temp Pulse Pulse Resp BP BP Pulse Ox 05/29/25 20:02 36.8 C 90 14 98/55 L 05/29/25 19:45 78 20 99 05/29/25 19:00 120/59 L 98 05/29/25 18:28 87 18 116/57 L 95 05/29/25 16:42 74 20 144/62 H 97 05/29/25 15:00 79 22 94/56 L 95 05/29/25 13:50 79 05/29/25 13:27 91 H 20 140/70 97 05/29/25 13:27 91 H 20 140/70 97 O2 Del Method 05/29/25 20:02 05/29/25 19:45 05/29/25 19:00 05/29/25 18:28 Room Air 05/29/25 16:42 Room Air 05/29/25 15:00 Room Air 05/29/25 13:50 05/29/25 13:27 Room Air 05/29/25 13:27 Room Air PG Care Time/CCT Total # of Minutes Spent Total Time Spent with Patient: Total time spent is greater than 50% in coordination of care (as documented) at patient's floor/unit and/or counseling patient: Coding Level of Care Code 13073 IN/OBS CONSULT LVL 2,35M Diagnoses of unknown anatomic location O36.80X0 with uncertain viability, single or unspecified fetus O36.80X0 Fetus number: single or unspecified fetus (2) with uncertain viability Fetus number: single or unspecified fetus Qualified Code(s): O36.80X0 - with inconclusive viability, not applicable or unspecified
[2025-05-29] MEDS ORDERED: HYDROmorphone INJ 2 MG/ML SYR/VIAL ONE (22:08)
[2025-05-29] MEDS: GELATIN SPONGE 12-7MM ONE (23:47)
[2025-05-29] MEDS: VANCOMYCIN HCL 1000MG/20ML VIAL ONE (23:47)
[2025-05-29] MEDS: FLOSEAL HEMOSTATIC MATRIX 5ML TOP ONE (23:48)
[2025-05-29] MEDS: THROMBIN 5000 UNITS KIT ONE (23:48)
[2025-05-29] MEDS: BUPIVACAINE 0.5 % 5 MG/1 ML MPF 30ML VIAL ONE (23:52)
[2025-05-29] MEDS ORDERED: KETOROLAC 30 MG/ML VIAL ONE (23:56)
[2025-05-29] MEDS ORDERED: SUGAMMADEX SODIUM 200 MG/2 ML VIAL IV ONE (23:56)
[2025-05-29] MEDS ORDERED: ONDANSETRON INJ 2 MG/ML 2 ML VIAL ONE (23:56)
--- NOTE | 2025-05-30 00:16 | Post Operative Brief Note ---
PG Immediate Post Op with CF Date of Surgery May 30, 2025 Pre & Post Diagnosis Operation Date: 05/29/25 20:25 Pre-Op Diagnosis: Caudal equina Syndrome Post-Op Diagnosis: Caudal equina Syndrome I identified the patient and participated in the time-out.: Yes Procedure Operation Date: 05/29/25 20:25 Actual Procedures p Lumbar Decompression L4-L5, Discectomy(Not Applicable) - Ravin Myles MD Surgeon Ravin Myles MD Expediter Service Order none Estimated Blood Loss 20 Findings Consistent with Post-Op Diagnosis Specimens Specimen Description: A. L4-L5 disc herniation Drains Trinidad Catheter
[2025-05-30] MEDS ORDERED: ONDANSETRON 4 MG OD TAB PO PRN (00:22)
[2025-05-30] MEDS ORDERED: HYDROmorphone INJ 0.5 MG/0.5 ML SYR IV PRN (00:22)
[2025-05-30] MEDS ORDERED: ONDANSETRON INJ 2 MG/ML 2 ML VIAL IV PRN ×2 (00:22→00:44)
[2025-05-30] MEDS ORDERED: METOCLOPRAMIDE HCL INJ 5 MG/ML 2 ML VIAL IV PRN (00:22)
[2025-05-30] MEDS ORDERED: DO NOT ADMINISTER FLU VACCINE PRN (00:22)
[2025-05-30] MEDS ORDERED: MAGNESIUM HYDROXIDE SUSP 30 ML UDC PO PRN (00:22)
[2025-05-30] MEDS ORDERED: LORazepam 0.5 MG TAB PO PRN (00:22)
[2025-05-30] MEDS ORDERED: ACETAMINOPHEN 500 MG TAB PO PRN (00:22)
[2025-05-30] MEDS ORDERED: HYDROmorphone INJ 1 MG/ML SYRINGE IV PRN (00:22)
[2025-05-30] MEDS ORDERED: diphenhydrAMINE Capsule 25 MG CAP PO PRN (00:22)
[2025-05-30] MEDS ORDERED: SOD PHOSPHATE/SOD BIPHOSPHATE ENEMA 132 ML BTL PR PRN (00:22)
[2025-05-30] MEDS ORDERED: DO NOT ADMINISTER PNEUMOCOCCAL VACCINE PRN (00:22)
[2025-05-30] MEDS ORDERED: ACETAMINOPHEN 1,000 MG/100 ML VIAL IV PRN (00:22)
[2025-05-30] MEDS ORDERED: PROMETHAZINE 12.5 MG/50.5 ML BAG IV PRN (00:22)
[2025-05-30] MEDS ORDERED: ALUMINUM/MAGNESIUM SUSP 30 ML UDC PO PRN (00:22)
[2025-05-30] MEDS ORDERED: FAMOTIDINE 20 MG TAB PO PRN (00:22)
[2025-05-30] MEDS ORDERED: NALOXONE HCL 0.4 MG/1 ML VIAL/CARP IV PRN (00:22)
[2025-05-30] MEDS ORDERED: PROMETHAZINE HCL 6.25 MG in SODIUM CHLORIDE 0.9% 50 ML IV PRN (00:44)
[2025-05-30] MEDS ORDERED: ATROPINE SULFATE 0.1 MG/ML 10ML SYR IV PRN (00:44)
[2025-05-30] MEDS ORDERED: HYDROmorphone INJ 2 MG/ML SYR/VIAL IV PRN (00:44)
--- NOTE | 2025-05-30 00:45 | Anesthesiology Progress Note ---
Date of Service May 30, 2025 Anesthesia Post Procedure Vital Signs Vital Signs: Temp Pulse Pulse Resp BP BP Pulse Ox 05/30/25 00:40 105 H 15 134/78 96 05/30/25 00:30 104 H 19 139/78 97 05/30/25 00:25 118 H 23 137/81 96 05/30/25 00:21 36.7 C 125 H 20 135/74 98 05/29/25 20:02 36.8 C 90 14 98/55 L 05/29/25 19:45 78 20 99 05/29/25 19:00 120/59 L 98 05/29/25 18:28 87 18 116/57 L 95 05/29/25 16:42 74 20 144/62 H 97 05/29/25 15:00 79 22 94/56 L 95 05/29/25 13:50 79 05/29/25 13:27 91 H 20 140/70 97 05/29/25 13:27 91 H 20 140/70 97 O2 Del Method 05/30/25 00:40 Room Air 05/30/25 00:30 Room Air 05/30/25 00:25 Room Air 05/30/25 00:21 Room Air 05/29/25 20:02 05/29/25 19:45 05/29/25 19:00 05/29/25 18:28 Room Air 05/29/25 16:42 Room Air 05/29/25 15:00 Room Air 05/29/25 13:50 05/29/25 13:27 Room Air 05/29/25 13:27 Room Air Pain Intensity Right Leg: Pain Intensity: 0 Transfer of Care Handoff Completed per policy Notes Mental Status: alert / awake / arousable Patient Amnestic to Procedure: Yes Nausea / Vomiting: adequately controlled Pain: adequately controlled Airway Patency, RR, SpO2: stable & adequate BP & HR: stable & adequate Hydration State: stable & adequate Anesthetic Complications: no major complications apparent
[2025-05-30] MEDS ORDERED: IBUPROFEN 200 MG TAB PO PRN (01:31)
[2025-05-30] MEDS: REMOVE LIDODERM PATCH SCH (02:14)
[2025-05-30] MEDS: LACTATED RINGER'S 1,000 ML IV ONE (02:14)
[2025-05-30] MEDS: ACETAMINOPHEN 1,000 MG/100 ML VIAL IV STA (02:14)
[2025-05-30 07:01] LABS: Anion Gap 7.0 (3-11); Blood Urea Nitrogen 6.0 mg/dl (6-23); Calcium 8.3 mg/dl (8.6-10.3); Carbon Dioxide 25.0 mmol/L (21-32); Chloride 107.0 mmol/L (98-107); Creatinine Clr Calc Pharmacy 148.0 ml/min; Glucose 104.0 mg/dl (70-99(Fasting)); Potassium 3.6 mmol/L (3.5-5.1); Sodium 139.0 mmol/L (136-145)
--- NOTE | 2025-05-30 07:19 | Orthopedic Progress Note ---
Date of Service May 30, 2025 Subjective Patient seen and examined, she notes a very distinct improvement of her right lower extremity symptoms, she can actively move her leg without any pain numbness or tingling, she has no focal weakness. She notes her left leg also functioning properly but she has some generalized numbness. Exam reveals full active appropriate motion the right lower extremity. Impression: Postoperative now 8 hours status post L4-5 right lumbar discectomy for lumbar disc herniation, cauda equina syndrome. Definite overall improvement of right lower extremity symptoms some numbness in the left lower extremity. Plan: Today we will monitor her left leg symptoms, mobilize her with physical therapy. Review of Systems All systems reviewed & are unremarkable except as noted in HPI & below. Physical Exam . Results & Data Results & Data Laboratory Results . Diagnostic Findings . PG Care Time/CCT Total # of Minutes Spent Total Time Spent with Patient: Total time spent is greater than 50% in coordination of care (as documented) at patient's floor/unit and/or counseling patient: Coding Level of Care Code 39192 Post Operative Follow-Up
[2025-05-30 07:49] LABS: Hematocrit (blood only) 40.9 % (37.0-47.0); Hemoglobin 13.6 g/dl (12.0-16.0); Mean Corpuscular Hemoglobin 28.9 pg (25.0-34.0); Mean Corpuscular Volume 87.0 fL (80.0-100.0); Platelet Count 216 K/uL (130-400); RDW Standard Deviation 41.5 fL (36.4-46.3); Red Blood Count 4.70 M/uL (4.20-5.40); White Blood Count 20.74 K/ul (4.8-10.8)
[2025-05-30 07:50] LABS: Immature Granulocytes # (auto) 0.06 K/uL (0.01-0.20); Immature Granulocytes % (auto) 0.3 %
[2025-05-30 08:11] LABS: Hemoglobin A1C 4.9 % (4.5-5.6)
[2025-05-30] MEDS: SERTRALINE HCL 100 MG TABLET PO SCH (08:47)
--- NOTE | 2025-05-30 10:04 | Fluoroscopy Report ---
FL lumbar spine 2-3V CLINICAL HISTORY: DECOMPRESSION AND DISCECTOMY COMPARISON STUDY: None FLUOROSCOPY TIME: 42 seconds FLUOROSCOPY IMAGES: 4 EXPOSURE DOSE: 33 mGy FINDINGS: Fluoroscopy was provided for lower lumbar surgery. IMPRESSION: Intraoperative fluoroscopy. ACT 112: Negative or not required by law. Electronically signed by: Vj Boyd M.D. 05/30/2025 10:03 AM
--- NOTE | 2025-05-30 12:01 | Hospitalist Progress Note ---
Date of Service May 30, 2025 Assessment & Plan (1) Cauda equina compression: Plan: 35 yo F w/ PMH of chronic back pain status post surgery (2020), mood disorder who is visiting family from [place] presents w/ worsening chronic low back pain since waking up on the morning of arrival a/w inability to human services program specialist her legs/numb BLE/bowel and bladder incontinence. She denied fever, chills, sob, chest pain. Of note, patient has been dealing with worsening back pain over the last few years after surgery following back trauma in [place] in 2020. Surgery contemplated soon by [place] specialist following insurance preauthorization as per patient account. She is being managed for the following: Cauda equina compression syndrome Hx chronic back pain status post surgery (2020) s/p emergent Lumbar Decompression L4-L5, Discectomy on 05/29. Pt now reports improving BLE pain and numbness, still numb BLE though. Has dewitt in, has not moved bowel after Sx, is moving gas. Orthospine on board, appreciate recs. Hypotension: secondary to hypovolemia, IV narcotics given at the ER contributory. BP now stable and improving. Hyperglycemia: ruled out DM, A1c 4.9 , unknown age/viability, patient verbalized intent to terminate unplanned . Gyne/obs following. [facility] [place] syed. Leukocytosis: Likely in the setting of acute stress/surgery. Patient afebrile, vitals stable, patient appears nontoxic. Will follow. DVT prophylaxis. SCDs re: procedure, chemo dvt px when cleared per sx team. Full code Text document was generated using Nidmi voice recognition software. It may contain grammatical or spelling errors. Kindly contact undersigned for clarification of any documentation item in question. Admission and Anticipated Discharge Date Admission Date: May 30, 2025 Subjective Patient was seen and examined at bedside. Patient was sitting up in bed, on room air, NAD, resting comfortably. Dewitt catheter in, patient denies any bowel movement after the surgery, patient reports moving gas, reports lower extremity pain has improved, has still numbness in BLE but has improved compared to prior to surgery. Patient denies any febrile illness or flulike illness or fever. Physical Exam Physical Exam: GENERAL: NAD, obese, no respiratory distress, on RA. SKIN: Normal color, warm HEENT: [place] palpebral conjunctivae, no ptosis, moist buccal mucosa NECK : Supple, no tenderness CHEST : CTA, no tenderness HEART : RRR, no obvious murmurs ABDOMEN: Some distention, nontender BACK : Low back tenderness EXTREMITIES : Minimal LE swelling, no LE tenderness, palpable pulses, no other conspicuous deformities noted NEUROLOGIC : Coherent, no facial asymmetry, occasional leg restlessness, gait and stance not assessed UC w/ clear yellow urine noted. Results & Data Results & Data Vital Signs (Past 12 Hours) Vital Signs Temp Pulse Pulse Pulse Resp BP Pulse Ox 05/30/25 11:24 36.6 C 68 18 120/76 96 05/30/25 07:55 36.5 C 82 18 111/64 95 05/30/25 07:51 74 05/30/25 02:52 36.5 C 81 18 108/64 95 05/30/25 02:48 92 H 05/30/25 01:52 36.5 C 95 H 18 121/73 97 05/30/25 01:34 36.6 C 82 18 115/64 99 05/30/25 01:00 97 H 19 133/73 98 05/30/25 00:50 99 H 21 123/76 96 05/30/25 00:40 105 H 15 134/78 96 05/30/25 00:30 104 H 19 139/78 97 05/30/25 00:25 118 H 23 137/81 96 05/30/25 00:21 36.7 C 125 H 20 135/74 98 O2 Del Method 05/30/25 11:24 Room Air 05/30/25 07:55 Room Air 05/30/25 07:51 05/30/25 02:52 Room Air 05/30/25 02:48 05/30/25 01:52 Room Air 05/30/25 01:34 Room Air 05/30/25 01:00 Room Air 05/30/25 00:50 Room Air 05/30/25 00:40 Room Air 05/30/25 00:30 Room Air 05/30/25 00:25 Room Air 05/30/25 00:21 Room Air
--- NOTE | 2025-05-30 16:46 | Operative Report ---
PG Post Operative Report Pre & Post Diagnosis Operation Date: 05/29/25 20:25 Pre-Op Diagnosis: Caudal equina Syndrome Post-Op Diagnosis: Caudal equina Syndrome I identified the patient and participated in the time-out.: Yes Procedure Operation Date: 05/29/25 20:25 Actual Procedures p Lumbar Decompression L4-L5, Discectomy(Not Applicable) - Ravin Myles MD Surgeon Ravin Myles MD Vacuum Metalizing Supervisor none Estimated Blood Loss 20 Findings Consistent with Post-Op Diagnosis Specimens Lumbar disc herniation L4-5. Description of Procedure 1. L4-5 lumbar decompression, right microdiscectomy. ([id number]) Patient operating room after adequate anesthesia was carefully positioned prone on the Elder frame and checked for positioning. A preprepped was performed in the lumbar spine, fluoroscopy was brought in and I marked for the approximate location of the incision midline approach to the L4-5 level. Prep and drape was performed, I began the procedure with a midline incision carried out over the L4-5 level and advanced down through the subcutaneous tissues to the region of the spinous processes. Dissection continued then on the right side exposing the L4 lamina on the right, facet of L4-5 and the superior laminar edge of L5 was located which had scar tissue from the prior right-sided L5-S1 lumbar disc herniation surgery in the past. The operative microscope was brought in, I began dissection by thinning removing the outer layer of scar tissue from the L5-S1 level and some of the thickened ligamentum flavum in this region, the high-speed bur was utilized to perform a right sided hemilaminotomy along the inferior edge of the lamina of L4 and along the medial facet of L4-5 and encompassing a small portion of the superior laminar edge of L5. This process continued until is able to mobilize into the canal and the thinned ligamentum flavum, from here I then removed the remaining ligamentum flavum up to the laminotomy and expose the dura and disc herniation fragment. Combination of a limited amount of bipolar cautery and Floseal with neuro patties was used to control a minimal amount of bleeding, the disc herniation fragment was cleared of any epidural vessels and then a small incision was made in a tissue covering the disc herniation fragment. I then proceeded to remove the disc herniation fragment in 1 large piece using a combination of pituitaries and nerve hooks, this was sent to pathology. I then proceeded to remove any remaining small fragments in the disc herniation region, and then worked into the disc space removing additional disc material from the disc space to complete the discectomy. The area was irrigated and the disc space several times removing additional medium and small fragments until I thought the discectomy was completed. There does not appear to be any additional compression on the dural sac, there was no evidence of CSF leakage, minimal epidural bleeding, this was controlled with additional Floseal. Vancomycin powder was placed, the incision site was closed with 2 layers of 0 Vicryl sutures 2-0 Vicryl sutures and jj for the skin, sterile dressing was applied, the patient tolerated procedure well was taken recovery room in satisfactory condition. Secondary to the size of the disc herniation and difficulty removing the fragment, body habitus, the procedure required substantially greater work than typically required for routine disc herniation/decompression. I attest to the content of the Intraoperative Record and any orders documented therein. Any exceptions are noted below.
[2025-05-30] MEDS: DOCUSATE SODIUM/SENNA 50/8.6MG TAB PO SCH (20:11)
[2025-05-31] MEDS: POLYETHYLENE (MIRALAX) 17 GM PACK PO SCH (06:35)
[2025-05-31 06:37] LABS: Hematocrit (blood only) 38.6 % (37.0-47.0); Hemoglobin 12.7 g/dl (12.0-16.0); Mean Corpuscular Hemoglobin 28.6 pg (25.0-34.0); Mean Corpuscular Volume 86.9 fL (80.0-100.0); Platelet Count 159 K/uL (130-400); RDW Standard Deviation 42.2 fL (36.4-46.3); Red Blood Count 4.44 M/uL (4.20-5.40); White Blood Count 11.21 K/ul (4.8-10.8)
[2025-05-31 06:54] LABS: Anion Gap 4.0 (3-11); Blood Urea Nitrogen 8.0 mg/dl (6-23); Calcium 8.4 mg/dl (8.6-10.3); Carbon Dioxide 28.0 mmol/L (21-32); Chloride 107.0 mmol/L (98-107); Creatinine Clr Calc Pharmacy 141.8 ml/min; Glucose 108.0 mg/dl (70-99(Fasting)); Magnesium 1.9 mg/dl (1.7-2.4); Potassium 3.8 mmol/L (3.5-5.1); Sodium 139.0 mmol/L (136-145)
--- NOTE | 2025-05-31 07:52 | Orthopedic Progress Note ---
Date of Service May 31, 2025 Subjective Patient seen and examined, she notes still some continued numbness in both lower extremities more so in the feet on the right and left leg somewhat diffuse, steer of some limited peroneal numbness and tingling. Patient demonstrates limited incisional pain posteriorly at the incision site. Intact motor strength though on lower extremity exam with 5/5 strength. Impression: Postoperative day 2 from cauda equina syndrome with removal of large disc herniation fragment. Plan: I discussed with patient the importance of her mobilizing with physical therapy, she had been up yesterday standing with limited ambulation. I recommendations are for mobilization with physical therapy today, appropriate pain medications. If cleared by physical therapy today and by hospitalist, can discharge home with follow-up next week. Review of Systems All systems reviewed & are unremarkable except as noted in HPI & below. Physical Exam . Results & Data Results & Data Laboratory Results . Diagnostic Findings . PG Care Time/CCT Total # of Minutes Spent Total Time Spent with Patient: Total time spent is greater than 50% in coordination of care (as documented) at patient's floor/unit and/or counseling patient: Coding Level of Care Code 58443 Post Operative Follow-Up
--- NOTE | 2025-05-31 15:01 | Hospitalist Progress Note ---
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 She denied fever, chills, sob, chest pain. Of note, patient has been dealing with worsening back pain over the last few years after surgery following back trauma in [place] in 2020. Surgery contemplated soon by [place] specialist following insurance preauthorization as per patient account. She is being managed for the following: Cauda equina compression syndrome Hx chronic back pain status post surgery (2020) s/p emergent Lumbar Decompression L4-L5, Discectomy on 05/29. Pt now reports improving BLE pain and weakness, still some numb BLE though. Trinidad removed, continent of urine. Orthospine on board, appreciate recs. d/w w/ orthospine, plan for 1 wk f/u and repeat MRI. Hypotension: secondary to hypovolemia, IV narcotics given at the ER contributory. BP now stable. Hyperglycemia: ruled out DM, A1c 4.9 , unknown age/viability, patient verbalized intent to terminate unplanned . Gyne/obs following. [id number] today. await further obs eval. Leukocytosis: Likely in the setting of acute stress/surgery. Patient afebrile, vitals stable, patient appears nontoxic. Will follow. improving. DVT prophylaxis. SCDs re: procedure, chemo dvt px when cleared per sx team. Full code Dispo: possible dc syed w/ clearance from Obs. pt will need OP PT. Text document was generated using [employer]ar[employer] voice recognition software. It may contain grammatical or spelling errors. Kindly contact undersigned for clarification of any documentation item in question. Admission and Anticipated Discharge Date Admission Date: May 30, 2025 Subjective Patient was seen and examined at bedside. Patient was sitting up in bed, on room air, NAD, resting comfortably. Trinidad was removed today, pt able to control urine, had sensation of bowel but was incontinent of BM. Pt reports improvement in her BLE weakness, Numbness is there but has improved per pt. Pt made aware to f/u w/ orthospine in a week time of discharge and possibly get repeat MRI, pt voiced understanding and was agreeable. Patient denies any febrile illness or flulike illness or fever. Physical Exam Physical Exam: GENERAL: NAD, obese, no respiratory distress, on RA. SKIN: Normal color, warm HEENT: [place] palpebral conjunctivae, no ptosis, moist buccal mucosa NECK : Supple, no tenderness CHEST : CTA, no tenderness HEART : RRR, no obvious murmurs ABDOMEN: Some distention, nontender BACK : Low back tenderness EXTREMITIES : Minimal LE swelling, no LE tenderness, palpable pulses, no other conspicuous deformities noted NEUROLOGIC : Coherent, no facial asymmetry, occasional leg restlessness, gait and stance not assessed Low back dressing w/o soakage. Results & Data Results & Data Vital Signs (Past 12 Hours) Vital Signs Temp Pulse Pulse Resp BP Pulse Ox O2 Del Method 05/31/25 14:54 64 05/31/25 11:21 36.7 C 58 L 16 109/61 97 Room Air 05/31/25 09:52 65 05/31/25 08:06 36.8 C 66 18 115/73 99 Room Air 05/31/25 03:14 36.8 C 59 L 18 125/66 96 Room Air
--- NOTE | 2025-06-01 06:50 | Obstetrical Progress Note ---
Date of Service June 01, 2025 Assessment & Plan Admission and Anticipated Discharge Date Admission Date: May 30, 2025 Subjective Patient met in room 244 this morning. I had reviewed prior documented visits and noted a 48-hour quantitative HCG rise: 1270 to 2143. Patient voices happiness and excitement at the news that her HCG has risen by a normal amount. She very much wants to carry a . She shares with me that she had IVF for twins several years ago, and she did not believe she could ever conceive spontaneously. However, she lost 100lb in the last year and had recently begun to have spontaneous menses for the first time since her teen years. She had only 5 or fewer menses before this was diagnosed and isn't certain of LMP. She has never had tubal surgery / tubal lig ation. was discovered incidentally when she presented with acute, severe back pain that ultimately required surgery. She tells me that she was under the impression her "was ectopic," and that it was not possible for her to carry it due to it being definitely ectopic. At this time I do not see sufficient information to definitively diagnose her as either intrauterine or ectopic, based on my review of the data available so far. I can only speculate that she was given ectopic precautions, which is correct and typical until the stage when a 's location becomes visible by ultrasound, and perhaps she misunderstood that this diagnosis was certain rather than merely possible. At this time as far as I can see her *could* be ectopic or intrauterine, but we do not know which. When asked if she would plan to terminate or carry a viable intrauterine if she has one, she states she would definitely carry and is "excited to call her and tell him it's possible." At this moment I do not know whether her is intrauterine or ectopic, nor do we know viability for certain, but her HCG is rising appropriately. She has had some scant brown spotting yesterday which is of uncertain clinical significance; could be implantation bleeding, could be r/t dewitt or other intraoperative manipulation, could be r/t impending SAB. Ultrasound was ordered today and may be able to visualize a GS transvaginally at this HCG level, or it may be several days until diagnosis is certain one way or the other. Patient was clear when I left the room today that we continue to have only an official diagnosis of " of uncertain location" at this time, neither intrauterine nor ectopic, but clarification is pending further workup. She is certain that if it is possible to carry her she would want to do so. She will get care with her established CUSTOMER SERVICE ASSOCIATE in [place] if that's the case, as she is only traveling through our area. She inquired as to the impact of events so far on her , and was assured that while there are risks to receiving anesthesia in first trimester, they are merited when a mother requires urgent treatment. Further, it is more common for to be unharmed than for impacts to reveal themselves, though we can't tell at this moment what impacts may or may not turner splitter machine operator to be. I would not have recommended avoiding surgery even if she had been able to consider that option, as she describes how severe her level of distress was pre-operatively. Hopefully this will help her achieve some degree of comfort with whatever may transpire moving forward. Results & Data Vital Signs (Past 12 Hours) Vital Signs Temp Pulse Pulse Resp BP BP Pulse Ox 06/01/25 05:54 56 L 06/01/25 03:02 98.1 F 66 18 101/62 97 05/31/25 23:26 98.1 F 73 18 110/61 96 05/31/25 22:51 05/31/25 19:14 98.4 F 70 18 114/72 98 O2 Del Method 06/01/25 05:54 06/01/25 03:02 Room Air 05/31/25 23:26 Room Air 05/31/25 22:51 Room Air 05/31/25 19:14 Room Air PG Care Time/CCT Total # of Minutes Spent Total Time Spent with Patient: Total time spent is greater than 50% in coordination of care (as documented) at patient's floor/unit and/or counseling patient: Coding Level of Care Code 77022 SUB INP/OBS CARE 2/35MIN
[2025-06-01 07:20] LABS: Hematocrit (blood only) 39.1 % (37.0-47.0); Hemoglobin 13.2 g/dl (12.0-16.0); Mean Corpuscular Hemoglobin 29.3 pg (25.0-34.0); Mean Corpuscular Volume 86.9 fL (80.0-100.0); Platelet Count 189 K/uL (130-400); RDW Standard Deviation 41.3 fL (36.4-46.3); Red Blood Count 4.50 M/uL (4.20-5.40); White Blood Count 10.51 K/ul (4.8-10.8)
[2025-06-01 07:33] LABS: Anion Gap 7.0 (3-11); Blood Urea Nitrogen 7.0 mg/dl (6-23); Calcium 8.5 mg/dl (8.6-10.3); Carbon Dioxide 28.0 mmol/L (21-32); Chloride 104.0 mmol/L (98-107); Creatinine Clr Calc Pharmacy 167.4 ml/min; Glucose 98.0 mg/dl (70-99(Fasting)); Magnesium 1.9 mg/dl (1.7-2.4); Potassium 3.2 mmol/L (3.5-5.1); Sodium 139.0 mmol/L (136-145)
--- NOTE | 2025-06-01 08:53 | Ultrasound Report ---
ULTRASOUND OF THE PELVIS CLINICAL HISTORY: Positive test. Confirm intrauterine gestation. COMPARISON STUDY: Pelvic ultrasound dated 05/29/2025 TECHNIQUE: Real-time, grayscale, and color flow sonography of the pelvis is performed both transabdom inally and endovaginally. Images are reviewed in the transverse and longitudinal planes. FINDINGS: Uterus: The uterus is normal in size and heterogeneous in echotexture Nabothian cysts are seen in the cervix. Endometrium: No uterine gestation is clearly identified. A final matter cystic focus is seen in the f undal region. The endometrium is thickened and heterogeneous, measuring up to 2.4 cm. Ovaries: The ovaries are normal in size and morphology. The right ovary measures 4.3 x 3.2 x 4.9 cm a nd the left ovary measures 2.9 x 2.9 x 2.4 cm. A 2.5 cm corpus luteum is suggested on the right. Norm al Doppler arterial and venous waveforms are shown within both ovaries. Pelvis: There is trace free fluid in the cul-de-sac. No concerning adnexal lesion is seen. IMPRESSION: 1. No intrauterine gestation is identified. This could simply reflect an intrauterine gestation that is too small to visualize or a missed . Although there is no concerning adnexal lesion identi fied, in the setting of a positive test without a confirmed intrauterine gestation ectopic would be impossible to exclude. Close clinical, laboratory, and sonographic follow-up is re commended. 2. The endometrium is thickened and heterogeneous. There is 5 mm cystic focus in the fundal endometri um, which is indeterminant and could represent a tiny gestational sac versus pseudogestational sac. N o parts are seen. 3. The ovaries are normal as visualized noting a probable corpus luteum on the right. 4. There is trace nonspecific free fluid in the cul-de-sac. ACT 112: Negative or not required by law. Electronically signed by: Jorge Luis Peng M.D. 06/01/2025 8:52 AM
[2025-06-01] MEDS: POTASSIUM CHLORIDE CRTAB 20 MEQ TABCR PO STA (09:16)
[2025-06-01 10:56] VITALS: BP 108/63; PULSE 78; RESP 20; TEMP 98.1; O2SAT 99
--- NOTE | 2025-06-01 11:02 | Orthopedic Progress Note ---
Date of Service June 01, 2025 Assessment & Plan (1) Cauda equina compression: * Continue Current Treatment * Disposition: TBD * Daily treatment: Physical Therapy/ Occupational Therapy per protocol * Weight bearing status: WBAT b/l LE * Continue to monitor for ABLA * Pain control * Office/hospital f/u 2 weeks for progress check and staple/suture removal * Remainder care per primary team * Stable for discharge from ortho standpoint, further planning per primary team (2) DDD (degenerative disc disease), lumbar: Subjective .Active Problems: S/p Lumbar Decompression L4-L5, Discectomy POD 3 35 y/o female s/p Lumbar Decompression L4-L5, Discectomy. Doing well overall, pain managed and improved function. Continued numbness into right foot and left leg, but motor intact and improving ambulation. Denies fever/chills, chest pain/SOB, nausea/vomiting. Otherwise no complaints. Review of Systems All systems reviewed & are unremarkable except as noted in HPI & below. Physical Exam .General: Alert and oriented, no acute distress * Constitutional: well-developed, well-nourished. * Respiratory: Normal respiratory effort, no distress * Gastrointestinal: No tenderness to palpation, no rigidity or guarding. * Skin: No rash or lesion. * Neurologic: Grossly normal * Musculoskeletal: Surgical dressing CDI. Lumbar spine region without obvious deformity or overlying skin changes. Minimal tenderness of surgical region, otherwise no tenderness b/l buttock or LE. Lumbar flexion/extension and rotation ROM with minimal pain. AROM b/l hip flexion, knee flexion/extension, ankle flexion/extension intact. Sensation intact plantar/dorsal foot. Brisk capillary refill. Results & Data Results & Data Laboratory Results . Diagnostic Findings . PG Care Time/CCT Total # of Minutes Spent Total Time Spent with Patient: Total time spent is greater than 50% in coordination of care (as documented) at patient's floor/unit and/or counseling patient: Coding Level of Care Code 47101 Post Operative Follow-Up Diagnoses Cauda equina compression G83.4 DDD (degenerative disc disease), lumbar M51.369
--- NOTE | 2025-06-01 11:18 | Discharge Summary ---
Date of Service June 01, 2025 Admission HPI Per Admitting Provider History obtained from patient, family, and records. Medical history significant for chronic back pain status post surgery (2020), mood disorder. Patient is a resident of [place], [place] who who has been visiting local family in [place] the past week. Patient has been dealing with worsening back pain over the last few years after surgery following back trauma in [place] in 2020. Surgery contemplated soon by [place] specialist following insurance preauthorization as per patient account. Patient woke up with worsening of chronic low back pain this morning. She could not move her legs. Left more than the right. Both legs felt numb. Bladder and bowel incontinence noted at home. No fever, no chills. No chest pain, no SOB. Intractable discomfort at the ER. Lowest SBP of 90s documented at the ER. Medical History as above Surgical History : Back surgery, section, cholecystectomy Family History : DM Personal/Social history : Non-smoker, no EtOH intake, businesswoman Admission Exam Per Admitting Provider GENERAL: Slightly uncomfortable, obese, no respiratory distress, lying on her left side. SKIN: Normal color, warm HEENT: [place] palpebral conjunctivae, no ptosis, dry buccal mucosa NECK : Supple, no tenderness CHEST : CTA, no tenderness HEART : RRR, no obvious murmurs ABDOMEN: Some distention, nontender BACK : Low back tenderness EXTREMITIES : Minimal LE swelling, no LE tenderness, palpable pulses, no other conspicuous deformities noted NEUROLOGIC : Coherent, no facial asymmetry, occasional leg restlessness, gait and stance not assessed Principal Diagnosis Cauda equina compression syndrome Hx chronic back pain status post surgery (2020) of "uncertain location" Discharge Exam GENERAL: NAD, obese, no respiratory distress, on RA. SKIN: Normal color, warm HEENT: [place] palpebral conjunctivae, no ptosis, moist buccal mucosa NECK : Supple, no tenderness CHEST : CTA, no tenderness HEART : RRR, no obvious murmurs ABDOMEN: Some distention, nontender BACK : Low back tenderness EXTREMITIES : Minimal LE swelling, no LE tenderness, palpable pulses, no other conspicuous deformities noted NEUROLOGIC : Coherent, no facial asymmetry, occasional leg restlessness, gait and stance not assessed Low back dressing w/o soakage. Discharge Data Allergies Allergy/AdvReac Type Severity Reaction Status Date / Time No Known Allergies Allergy Verified 05/29/25 17:31 Consultations 05/29/25 19:56 ED Decision to Admit Stat 05/29/25 20:35 Consult Obstetrics Routine Consult Orthopedic Spine Surgery Routine Procedures Performed Operation Date: 05/29/25 20:25 Actual Procedures p Lumbar Decompression L4-L5, Discectomy(Not Applicable) - Ravin Myles MD Ordered Studies 05/29/25 FL lumbar spine 2-3V Routine 05/29/25 15:09 US OB transvaginal Stat US ectopic Stat 05/29/25 16:03 MRI Lumbar Spine [MR lumbar spine wo con] Stat 06/01/25 07:24 US OB transvaginal Stat US ectopic Stat Hospital Course (1) Cauda equina compression: 35 yo F w/ PMH of chronic back pain status post surgery (2020), mood disorder who is visiting family from [place], [place] presents w/ worsening chronic low back pain since waking up on the morning of arrival a/w inability to timber bucker her legs/numb BLE/bowel and bladder incontinence. She denied fever, chills, sob, chest pain. Of note, patient has been dealing with worsening back pain over the last few years after surgery following back trauma in [place] in 2020. Surgery contemplated soon by [place] specialist following insurance preauthorization as per patient account. She was managed for the following: Cauda equina compression syndrome Hx chronic back pain status post surgery (2020) s/p emergent Lumbar Decompression L4-L5, Discectomy on 05/29. Pt now reports improving BLE pain and weakness, reports able to walk better, reports numb getting better. [place] removed 05/31, continent of urine, no further BM after 1 incontinent BM on 05/31 AM. Orthospine on board, plan for 1 wk f/u and repeat MRI, ok from their POV to dc pt. Hypotension: secondary to hypovolemia, IV narcotics given at the ER contributory. BP now stable. Hyperglycemia: ruled out DM, A1c 4.9 , unknown age/viability, Gyne/obs evaled, d/w OB oncall, ok for DC/no further recs at the moment. Pt advised to f/u w/ OB on dc in a week time. Leukocytosis: Likely in the setting of acute stress/surgery. Patient afebrile, vitals stable, patient appears nontoxic. Will follow. resolved. Full code Patient is being discharged to home with outpatient physical therapy with following instructions at the point of discharge: Follow-up with your primary care physician within a week time and likely you will need labs CBC/CMP/magnesium/phosphorus. You underwent emergent lumbar decompression and discectomy for cauda equina compression syndrome, I recommend that for you follow-up with orthospine in a week time upon discharge and most likely you will be getting MRI lumbar spine. You can use [id number] Tylenol for mild to moderate pain management, you will be discharged with few days worth of oxycodone for severe pain. If ongoing pain, reach out to your orthospine office for further evaluation/pain management. You were also noted to have elevated beta-hCG indicating , since location could not be determined/you were evaluated by real estate director while in the hospital, recommend that you follow-up with your friction paint machine tender/real estate director in a week time upon discharge and follow-up on ongoing monitoring. Take your medications as prescribed. Please make sure that you are able to get your medications today by calling your pharmacy before you leave the hospital so that your treatment continuity is not broken. Text document was generated using [employer] voice recognition software. It may contain grammatical or spelling errors. Kindly contact undersigned for clarification of any documentation item in question. Home Health Attestation I certify that this patient is under my care and that I, or a physicians orthotics assistant working with me, had a face to-face encounter that meets the home health [id number] encounter requirements with this patient. The encounter with the patient was in whole, or in part, for the following medical condition, which is the primary reason for home health care (list medical condition): I certify that, based on my findings, the following services are medically necessary home health services: My clinical findings support the need for the above services because: Further, I certify that my clinical findings support that this patient is homebound (i.e. absences from home require considerable and taxing effort and are for medical reasons or yarsanism services or infrequently or of short duration when for other reasons) because: Certification for Home Health Services: Based on the above findings, I certify that this patient is confined to the home and needs intermittent snf care, physical therapy and/or speech therapy or continues to need occupational therapy. The patient is under my care, and I have initiated the establishment of the plan of care. This patient will be followed by a physician who will periodically review the plan of care. Total Time Total Time Spent Total Time Spent (In Minutes): 45 Discharge Plan Discharge Items Patient Disposition: Home - Self-Care Reason For Visit: CAUDA EQUINA SYNDROME,LUMBAR DISC HERNIATION Discharge Diagnosis: Cauda equina compression syndrome Hx chronic back pain status post surgery (2020) of "uncertain location" Condition on Discharge: Serious Activity: As commented below Activity Comment: continue w/ physical therapy upon discharge Non-emergency contact: Primary Care Provider Call non-emergency contact if: you have any medication questions Follow-up/Referrals: Ravin Myles MD [Surgeon] - 06/09/25 1:00 pm Eryn Golden WHNP [Primary Care Provider] - Diet: Regular Addtl Attending Provider Instructions: Follow-up with your primary care physician within a week time and likely you will need labs CBC/CMP/magnesium/phosphorus. You underwent emergent lumbar decompression and discectomy for cauda equina compression syndrome, I recommend that for you follow-up with orthospine in a week time upon discharge and most likely you will be getting MRI lumbar spine. You can use [id number] Tylenol for mild to moderate pain management, you will be discharged with few days worth of oxycodone for severe pain. If ongoing pain, reach out to your orthospine office for further evaluation/pain management. You were also noted to have elevated beta-hCG indicating , since location could not be determined/you were evaluated by real estate director while in the hospital, recommend that you follow-up with your friction paint machine tender/real estate director in a week time upon discharge and follow-up on ongoing monitoring. Take your medications as prescribed. Please make sure that you are able to get your medications today by calling your pharmacy before you leave the hospital so that your treatment continuity is not broken. Pending Studies at Discharge: No Stand-Alone Forms: My [employer], Smoking Cessation Medications and DC Order Prescriptions: New gabapentin 100 mg Capsule 100 mg PO QAM Qty: 30 0RF oxycodone 5 mg Tablet 5 mg PO QID PRN (Reason: severe pain) Qty: 15 0RF Continued sertraline 100 mg tablet 200 mg PO DAILY Held ibuprofen 200 mg Tablet 1,000 mg PO DIRECTED PRN (Reason: Pain) Hold Instructions: Resume on 06/08/25. Discharge Orders: Discharge Order (Routine); Ordered 06/01/25 Ordered By: Zeke Obregon Admission Data Admit Date/Time: 05/29/25 20:07 Attending Provider: Zeke Obregon Admit Provider: Ravin Myles Primary Care Provider: Eryn Golden Other Providers: Preet Reyes; Sunny Wilhelm; Ravin Myles Other Interventions: Discharge Summary Assessment (RN) Last Done: 06/01/25 09:46
--- NOTE | 2025-06-01 11:20 | Communication Note ---
Date of Service: June 01, 2025 Received signout this AM from prior call provider. HCGs epifanio from 1270 (05/29) >2143 (05/31) so US was ordered this AM. US today shows uterus with a 5mm cystic focus in the endometrium that could be a tiny gestational sac vs pseudogestational sac. There is thought to be a 2.5cm corpus luteum on the right and no concerning adnexal lesion. Reviewed that with quant at level from yesterday or slightly higher at this point, this is not unreasonable that still cannot definitively know if intrauterine vs ectopic but she otherwise is not having symptoms. Plan is for dc from hospitalist standpoint today so I will put in hcg order for tomorrow and instructed pt to obtain at a [facility] lab. I will send msg to arrange for office follow up with obgyn in the next week to discuss further determination. Ectopic precautions reviewed, pt verbalized understanding
== END 2025-06-01 12:34 | disposition home or self-care (01) | DRG 818 ==
LOC: ED 13:19 → 2S 13:19 → INTOOBSV 20:07 → 2S 20:33 → OBSVTOIN 05-30 00:22